=== PATIENT | male | born 1945 | race Caucasian/White ===

== ENCOUNTER 2017-03-19 07:30 | Day surgery (SDC) | payer MEDICARE, OTHER ==
[2017-03-19] MEDS ORDERED: HEPARIN 1000 UNITS/ML 10 ML INJ (08:22)
[2017-03-19] MEDS ORDERED: LIDOCAINE 1% (MDV) 20 ML INJ (08:22)
[2017-03-19] MEDS ORDERED: MIDAZOLAM 1 MG/ML 2 ML INJ (08:22)
[2017-03-19] MEDS ORDERED: VERAPAMIL 5 MG INJ (08:23)
[2017-03-19] MEDS ORDERED: FENTAnyl 50 MCG/ML VIAL ×2 (08:23→08:27)
[2017-03-19] MEDS ORDERED: NITROGLYCERIN (IC) 100 MCG/ML INJ (08:24)
[2017-03-19 08:38] LABS: ADD MAN DIFF? NO
[2017-03-19 08:39] LABS: BASOPHIL # 0.1 10^3/ul (0.0-0.1); BASOPHILS % 0.8 % (0.0-2.0); EOSINOPHILS # 0.1 10^3/ul (0.0-0.5); EOSINOPHILS % 1.9 % (0.0-7.0); HEMATOCRIT 46.3 % (42.0-52.0); HEMOGLOBIN 15.1 g/dl (14.0-18.0); MEAN CORPUSCULAR HEMOGLOBIN 29.8 pg (29.0-33.0); MEAN CORPUSCULAR HGB CONC 32.6 g/dl (32.0-37.0); MEAN CORPUSCULAR VOLUME 91.3 fl (82.0-101.0); MEAN PLATELET VOLUME 10.1 fl (7.4-10.4); MONOCYTE # 0.5 10^3/ul (0.3-0.9); MONOCYTES % 8.2 % (0.0-11.0); NEUTROPHIL # 3.7 10^3/ul (1.6-7.5); NEUTROPHILS % 57.8 % (39.0-77.0); PLATELET COUNT 147 10^3/UL (140-415); RED BLOOD COUNT 5.07 10^6/ul (4.70-6.10)
[2017-03-19 08:39] LABS: WHITE BLOOD COUNT 6.5 10^3/ul (4.8-10.8)
[2017-03-19 09:01] LABS: INR 0.95; PROTIME 12.8 Sec (11.9-14.9)
[2017-03-19 09:04] LABS: ALANINE AMINOTRANSFERASE 36 IU/L (13-69); ALBUMIN/GLOBULIN RATIO 1.17; ALKALINE PHOSPHATASE 72 IU/L (42-121); ANION GAP 17 (8-16); ASPARTATE AMINO TRANSFERASE 21 IU/L (15-46); BILIRUBIN,INDIRECT 0.3 mg/dl (0-1.1); BILIRUBIN,TOTAL 0.3 mg/dl (0.2-1.3); CARBON DIOXIDE 27 mmol/L (21-31); CHLORIDE 103 mmol/L (97-110); GLUCOSE 192 mg/dl (70-220); TOTAL PROTEIN 7.4 g/dl (6.1-8.1)
[2017-03-19 09:14] LABS: BLOOD UREA NITROGEN 20 mg/dl (7-20); CREATININE 1.62 mg/dl (0.61-1.24); POTASSIUM 4.7 mmol/L (3.5-5.1); SODIUM 142 mmol/L (135-144)
[2017-03-19 09:39] LABS: CHOL/HDL RATIO 5.1 RATIO; HDL CHOLESTEROL 40 mg/dl (31-75); LDL CHOLESTEROL,CALCULATED 117 mg/dl; TRIGLYCERIDES 249 mg/dl (0-149)
[2017-03-19 09:39] LABS: CHOLESTEROL 207 mg/dl (100-200)
[2017-03-19] MEDS ORDERED: ACETAMINOPHEN 325 MG TAB PO (11:00)
[2017-03-19] MEDS ORDERED: ONDANSETRON 4 MG INJ IV (11:00)
[2017-03-19] MEDS ORDERED: AL HYDROX/MG HYDROX/SIMETH 30 ML CUP PO (11:00)
[2017-03-19] MEDS ORDERED: morphine 2 MG INJ IV (11:00)
[2017-03-19] MEDS: SOD CHLORIDE 0.9% 1,000 ML IV (11:03)
== END 2017-03-19 15:34 | disposition home or self-care (01) ==
LOC: CCL 07:30 → SDS 07:30 → CCL 15:34
DX: I25.10 Atherosclerotic heart disease of native coronary artery without angina pectoris (principal); I10 Essential (primary) hypertension; E78.5 Hyperlipidemia, unspecified; E11.9 Type 2 diabetes mellitus without complications; I48.91 Unspecified atrial fibrillation
CPT/HCPCS: 71045; 80053; 80061; 82962; 85025; 85610; 85730; 92979; 93005; 93458